=== PATIENT | male | born 1965 | race Caucasian/White ===

== ENCOUNTER 2019-03-23 | Emergency (ER) | payer MEDICARE ==
[2019-03-23 13:19] LABS: HEMOGLOBIN 13.5 g/dl (14.0-18.0); IMMATURE GRANULOCYTES 0.3 % (0.0-5.0); MEAN CELL VOLUME 89.2 fL CALC (80.0-100.0); MEAN CORPUSCULAR HGB 28.7 pG CALC (26.0-32.0); MEAN CORPUSCULAR HGB CONC 32.1 g/L CALC (32.0-36.0); NEUT# 4.43 thou/uL (1.82-7.42); RED BLOOD COUNT 4.71 mill/uL (4.70-6.10); RED CELL DISTRI WIDTH 13.6 % (11.5-15.5)
[2019-03-23 13:48] LABS: ALKALINE PHOSPHATASE 69 u/l (38-126); ANION GAP 15 (6-22 (CALC)); BILIRUBIN, TOTAL 0.7 mg/dL (0.0-1.4); BUN 23 mg/dL (9-20); BUN/CREATININE RATIO 20 (12-20 (CALC)); CARBON DIOXIDE 32 mmol/l (22-30); CHLORIDE 90 mmol/l (95-108); CREATININE 1.1 mg/dL (0.7-1.3); GFR > 60 ML/MIN (>=60 (CALC)); GFR FOR AFR.AMER. > 60 ML/MIN (>=60 (CALC)); POTASSIUM 4.2 mmol/l (3.5-5.1); SGOT/AST 33 u/l (17-59); SODIUM 133 mmol/l (137-146)
[2019-03-23 14:57] LABS: URINE BILIRUBIN - DIPSTICK NEGATIVE (NEGATIVE); URINE BLOOD DIPSTICK NEGATIVE (NEGATIVE); URINE COLOR YELLOW; URINE GLUCOSE - DIPSTICK NEGATIVE (NEGATIVE); URINE KETONE NEGATIVE (NEGATIVE); URINE LEUK ESTERASE NEGATIVE (NEGATIVE); URINE NITRITE - DIPSTICK NEGATIVE (Negative); URINE PROTEIN - DIPSTICK NEGATIVE (NEG-TRACE); URINE SPECIFIC GRAVITY 1.025; URINE UROBILINOGEN - DIPSTICK 0.2 E.U./dL (0.2)
[2019-03-23] MEDS ORDERED: CELEBREX200 MG PO (15:04)
[2019-03-23] MEDS ORDERED: FUROSEMIDE20 MG PO (15:05)
[2019-03-23] MEDS ORDERED: ONDANSETRON4 MG PO (15:06)
[2019-03-23] MEDS ORDERED: CLONIDINE0.1 MG PO (15:06)
[2019-03-23] MEDS ORDERED: COREG25 MG PO (15:07)
[2019-03-23] MEDS ORDERED: LISINOPRIL20 MG PO (15:07)
[2019-03-23] MEDS ORDERED: PAROXETINE40 MG PO (15:08)
[2019-03-23] MEDS ORDERED: ADDERALL15 MG PO (15:08)
[2019-03-23] MEDS ORDERED: MORPHINE SUL15 MG PO (15:09)
[2019-03-23] MEDS ORDERED: KLOR-CON SPRIN10 MEQ PO (15:10)
[2019-03-23] MEDS ORDERED: ACTOS30 MG PO (15:11)
[2019-03-23] MEDS ORDERED: PRAVASTATIN40 MG PO (15:11)
[2019-03-23] MEDS ORDERED: ZYRTEC10 M5 PO (15:12)
[2019-03-23] MEDS ORDERED: KLONOPIN0.5 MG PO (15:13)
[2019-03-23] MEDS ORDERED: BL GAS RELIE125 MG PO (15:14)
[2019-03-23] MEDS ORDERED: GNP ACETAMINOP500 MG PO (15:15)
[2019-03-23] MEDS ORDERED: PREDNISONE50 MG PO (16:02)
== END 2019-03-23 18:05 | disposition home or self-care (01) ==
PROVIDERS: Family Medicine
DX: J45.909 Unspecified asthma, uncomplicated (principal); E11.9 Type 2 diabetes mellitus without complications; I11.0 Hypertensive heart disease with heart failure; I50.9 Heart failure, unspecified; R06.02 Shortness of breath